=== PATIENT | female | born 1935 | race Caucasian/White ===

== ENCOUNTER 2017-05-24 10:01 | Emergency (ER) | payer MEDICARE ==
--- NOTE | 2017-05-24 10:40 | UC ---
Respiratory Complaint HPI - HPI Summary HPI Summary: cough and congestion for about 2-3 weeks. She has hx of bronchitis that will linger such as this that occurs about every year. This is consistent with prior. She denies fever. She has a daily preventative inhaler that she uses. No known rescue inhaler. The cough is dry. No pain or cardiac ischemic equivalents. - History of Current Complaint Stated Complaint: UPPER RESP Time Seen by Provider: 05/24/17 10:08 Hx Obtained From: Patient, Family/Underwriting Internship Onset/Duration: Gradual Onset, Lasting Weeks, Still Present Timing: Constant Severity Initially: Moderate Severity Currently: Moderate Character: Cough: Nonproductive Aggravating Factors: Deep Breaths, Recumbent Position Alleviating Factors: OTC Meds Associated Signs And Symptoms: Positive: Wheezing. Negative: Dyspnea, Fever, Chills, Pleuritic Chest Pain, Calf Pain, Calf Swelling, Edema - Allergies/Home Medications Allergies/Adverse Reactions: Allergies Allergy/AdvReac Type Severity Reaction Status Date / Time Penicillins Allergy Severe Hives Verified 05/24/17 10:45 Perfume Allergy Unknown Unknown Verified 05/24/17 10:45 Reaction Details Adhesive Tape Allergy Rash Verified 05/24/17 10:45 smoke Allergy Unknown Uncoded 05/24/17 10:45 Reaction Details PMH/Surg Hx/FS Hx/Imm Hx Previously Healthy: No - intermittent bronchitis. - Surgical History Surgical History: Yes Surgery Procedure, Year, and Place: hysterectomy,R TKA,lumpectomy x2,carpal tunnel BILATERAL, appy - Family History Known Family History: Positive: Hypertension - Social History Alcohol Use: None Substance Use Type: None Smoking Status (MU): Never Smoked Tobacco Review of Systems ENT: Sinus Congestion Respiratory: Cough All Other Systems Reviewed And Are Negative: Yes Physical Exam Triage Information Reviewed: Yes Appearance: Well-Appearing - Jovial and pleasant. Frequent dry cough., No Pain Distress, Well-Nourished Vital Signs Reviewed: Yes Eye Exam: Normal Eyes: Positive: Conjunctiva Clear ENT: Positive: Normal ENT inspection, Pharynx normal, Nasal congestion, TMs normal, Uvula midline. Negative: Nasal drainage, TM bulging, TM dull, TM red, Tonsillar swelling, Tonsillar exudate, Trismus, Muffled voice Neck: Positive: Supple, Nontender, No Lymphadenopathy Respiratory: Positive: Lungs clear, Normal breath sounds, No respiratory distress, No accessory muscle use, Wheezing - mild scatterred wheezing but there is good air movement.. Negative: Respiratory distress, Decreased breath sounds, Accessory muscle use, Crackles, Rhonchi, Stridor Cardiovascular: Positive: No Murmur, Pulses Normal, Brisk Capillary Refill. Negative: Tachycardia Abdomen Description: Positive: Soft. Negative: Distended, Guarding Musculoskeletal: Positive: Strength Intact, ROM Intact, No Edema Neurological: Positive: Alert, Muscle Tone Normal. Negative: Fatigued Psychological: Positive: Normal Response To Family, Age Appropriate Behavior Skin: Negative: rashes UC Diagnostic Evaluation - Radiology Xray Interpretation: No Acute Changes Radiology Interpretation Completed By: Radiologist Respiratory Course/Dx - Course Course Of Treatment: Three weeks of cough. This on exam is mainly upper airway and inflammation. X ray to be reviewed but no obvious signs of pneumonia or serious bacterial infection. We will treat aggressively and both daughter and patient agree to f/u with pcp or return here should symptoms not improve or should they worsen. - Differential Dx/Diagnosis Differential Diagnosis/HQI/PQRI: Airway Obstruction, Foreign Body, Aspiration, Asthma, Bronchitis, CHF, Exacerbation Of COPD, Influenza, Laryngitis, Lower Resp Infection, MRSA, VRE, Pneumothorax, Pulmonary Embolism, Sinusitis, Tuberculosis Provider Diagnoses: Acute bronchitis with reactive airway disease. Discharge - Discharge Plan Condition: Good Disposition: HOME Prescriptions: Albuterol HFA INHALER* [Ventolin HFA Inhaler*] 1 puff INH Q4H PRN #1 mdi PRN Reason: Cough Azithromyxin HERIBERTO (NF) [Z-Heriberto (Zithromax) 250 mg tabs #6] 2 tab PO .TODAY, THEN 1 DAILY #6 tab Benzonatate [TESSALON 200 MG CAP] 200 mg PO TID #21 cap predniSONE TAB* [Deltasone TAB*] 20 mg PO DAILY #15 tab Spacer/Holding Chamber (NF) [Easivent CHAMBER (NF)] 1 applic INH Q4HR PRN #1 device PRN Reason: Cough Patient Education Materials: Acute Bronchitis (ED) Referrals: Boris Martinez MD [Primary Care Provider] - If Needed
--- NOTE | 2017-05-24 10:48 | RAD ---
HISTORY: Cough and congestion COMPARISONS: July 26, 2011 VIEWS: 5: Frontal dual-energy and lateral views of the chest. FINDINGS: CARDIOMEDIASTINAL SILHOUETTE: The cardiomediastinal silhouette is normal. THERESE: The therese are normal. PLEURA: The costophrenic angles are sharp. No pleural abnormalities are noted. LUNG PARENCHYMA: There is hyperinflation with flattening of the diaphragm and expansion of the AP diameter of the chest. ABDOMEN: The upper abdomen is clear. There is no subphrenic gas. BONES AND SOFT TISSUES: There is diffuse osteopenia. Degenerative changes are noted. OTHER: None. IMPRESSION: NO ACTIVE CARDIOPULMONARY DISEASE.
[2017-05-24 10:50] VITALS: BP 126/60
== END 2017-05-24 11:14 | disposition home or self-care (01) ==
LOC: UCCORT 10:01
DX: J20.9 Acute bronchitis, unspecified (principal); J45.909 Unspecified asthma, uncomplicated; Z91.048 Other nonmedicinal substance allergy status; Z88.0 Allergy status to penicillin; Z90.710 Acquired absence of both cervix and uterus
CPT/HCPCS: 71046; 99212; G0463